=== PATIENT | female | born 1980 | race Caucasian/White ===

== ENCOUNTER 2017-10-15 11:00 | Observation (INO) | payer SELFPAY ==
[2017-10-15 12:42] LABS: ABS Basophils 0.1 10^3/ul (0-0.2); ABS Eosinophils 0.1 10^3/ul (0-0.6); ABS Lymphocytes 1.5 10^3/ul (1.0-4.8); ABS Monocytes 0.6 10^3/ul (0-0.8); ABS Nucleated RBC 0 10^3/ul; Eosinophil % 0.9 % (0-6); Hematocrit 40 % (35-47); Hemoglobin 13.4 g/dl (12.0-16.0); Lymphocyte % 14.7 % (25-47); Mean Corpuscular HGB Conc 33 g/dl (31-36); Mean Corpuscular Hemoglobin 30 pg (27-31); Mean Corpuscular Volume 90 fL (80-97); Mean Platelet Volume 6.8 um3 (7.4-10.4); Nucleated Red Blood Cells % 0; Platelet Count 417 10^3/ul (150-450); Red Blood Count 4.49 10^6/ul (4.0-5.4); Red Cell Distribution Width 13 % (10.5-15); White Blood Count 10.3 10^3/ul (3.5-10.8)
[2017-10-15 13:08] LABS: EGFR Non-African American 78.4 (>60)
[2017-10-15] MEDS ORDERED: Iohexol 350* (CONTRAST) 500 ML MDV IV ONE (13:27)
--- NOTE | 2017-10-15 14:19 | RAD ---
INDICATION: Chest pain. Elevated troponins. Short of breath. Evaluate for pulmonary embolus. COMPARISON: Soft tissue sonogram October 14, 2017 TECHNIQUE: Axial source images were obtained from the thoracic inlet to the hemidiaphragms following administration of [address] angiographic technique was utilized. Coronal and sagittal reconstructed images were acquired. CHEST FINDINGS: Neck/thyroid: There is no evidence of a thyroid mass. There is deep and superficial soft tissue edema to left of midline in the visualized lower neck. Chest wall: Superficial and deep soft tissue edema in the left chest wall/thoracic inlet extending into the left axillary region There is no supraclavicular, infraclavicular, or axillary lymphadenopathy. Lungs : Mild bibasilar atelectasis. No focal consolidative changes. Cardiomediastinal structures: There is no CT evidence of acute pulmonary embolic disease. The heart is normal in size. There is no pericardial effusion. There is mediastinal edema. There is no mediastinal emphysema There is no evidence of aortic aneurysm or dissection. There is no mediastinal or hilar adenopathy. The esophagus appears normal. Pleura : Small moderate-sized bilateral pleural effusions. Other: At the diaphragmatic hiatus there is soft tissue prominence/edema surrounding the aorta which is likely part of the same process extending caudally from the mediastinum. IMPRESSION: THERE ARE DIFFUSE EDEMATOUS/INFILTRATIVE CHANGES LIKELY INFLAMMATORY OR INFECTIOUS EXTENDING FROM THE LEFT NECK TO THE CAUDAL MOST IMAGES AT THE DIAPHRAGMATIC HIATUS. THE SIGNIFICANCE IS UNCERTAIN. THERE ARE BILATERAL PLEURAL EFFUSIONS. THERE IS NO CT EVIDENCE OF ACUTE PULMONARY EMBOLUS. Findings discussed with emergency department.
[2017-10-15] MEDS ORDERED: Acetaminophen TAB* 325 MG PO PRN (15:18)
[2017-10-15 15:23] LABS: INR 1.03 (0.77-1.02)
[2017-10-15] MEDS: Aspirin EC TAB* 81 MG TAB.EC PO SCH (16:06)
--- NOTE | 2017-10-15 19:17 | ECHO ---
Amended Report Patient: RAFAT ARIAS [facility] Rec#: [id number] : 1980 Date: 10/15/2017 Age: 36y Height: 177.8 cm / 70.0 in Weight: 90.72 kg / 199.9 lbs Sex: F BSA: 2.09 Room#: ED-3 Admit Date#: 10/15/2017 Type: Inpatient Referring: Zenia Philippe NP Reading: Sebastian Gunter MD Corporate Travel Manager: Zenia Pat RDCS CC: Hayde Escobar Transthoracic Echocardiogram Indication: Chest pain, ACS. BP: 119/86 HR: 81 Rhythm: NSR with PVCs Findings History: No known health history, non-smoker. Technical Comments: The study quality is fair. Completed at 1630. Left Ventricle: The left ventricular chamber size is normal. There is no left ventricular hypertrophy. Global left ventricular wall motion and contractility are within normal limits. There is normal left ventricular systolic function. The estimated ejection fraction is 55-60%. Abnormal left ventricular diastolic function is observed. There is an E to A reversal in the mitral valve flow pattern suggestive of diastolic dysfunction. Left Atrium: The left atrial chamber size is normal. Right Ventricle: Moderator Band present. The right ventricular cavity size is normal. The right ventricular global systolic function is low normal. Right Atrium: The right atrial cavity size is normal. Aortic Valve: The aortic valve is trileaflet. There is no evidence of aortic valve thickening. There is a trace of aortic regurgitation. There is no evidence of aortic stenosis. Mitral Valve: The mitral valve leaflets are mildly thickened. There is a trace of mitral regurgitation. There is no evidence of mitral stenosis. Tricuspid Valve: The tricuspid valve leaflets are normal. There is a physiologic tricuspid regurgitation. Unable to estimate the right ventricular systolic pressure. There is no tricuspid stenosis. Pulmonic Valve: The pulmonic valve appears normal. There is trace to mild pulmonic regurgitation. There is no pulmonic stenosis. Pericardium: There is no significant pericardial effusion. There are no signs of significant hemodynamic compromise. A pericardial fat pad is visualized. Aorta: There is no dilatation of the ascending aorta. There is no dilatation of the aortic arch. The aortic root is normal in size. Pulmonary Artery: The main pulmonary artery appears normal. Venous: The inferior vena cava appears normal in size. There is a greater than 50% respiratory change in the inferior vena cava dimension. Conclusions Global left ventricular wall motion and contractility are within normal limits. There is normal left ventricular systolic function. The estimated ejection fraction is 55-60%. The right ventricular global systolic function is low normal. There is a trace of aortic regurgitation. There is a trace of mitral regurgitation. There is a physiologic tricuspid regurgitation. Unable to estimate the right ventricular systolic pressure. Measurements Name Value Normal Range RVIDd (AP) 2D 3 cm (0.9 - 2.6) RVDdMajor (2D) 3.6 cm (2.2 - 4.4) RAd ISD 4CH 4.6 cm (3.4 - 4.9) RA (A4C)W 3.9 cm (2.9 - 4.6) IVSd (2D) 1 cm (0.6 - 1) LVPWd (2D) 0.9 cm (0.6 - 1) LVIDd (2D) 4.2 cm (3.6 - 5.4) LVIDs (2D) 2.7 cm - LV FS (2D) 36 % (25 - 45) Aortic Annulus 2.3 cm (1.4 - 2.6) Ao root diameter (2D) 2.7 cm (2.1 - 3.5) Ascending Ao 3.2 cm (2.1 - 3.4) Aortic arch 2.3 cm (1.8 - 3.4) LA dimension (AP) 2D 3 cm (2.3 - 3.8) LAd ISD 4CH 5 cm (2.9 - 5.3) LA ISD 4CH W 4.2 cm (2.5 - 4.5) Name Value Normal Range LA ESV SP 4CH (A/L) 56 ml - LA ESV SP 2CH (A/L) 52 ml - LA ESV BP (A/L) 54 ml - LA ESV BP (A/L) index 26 ml/m2 - LA ESV SP 4CH (MOD) 51 ml - LA ESV SP 2CH (MOD) 49 ml - Name Value Normal Range MV E-wave Vmax 0.58 m/sec - MV deceleration time 160.1 msec - MV A-wave Vmax 0.74 m/sec - MV E:A ratio 0.79 ratio - LV septal e' Vmax 0.09 m/sec - LV lateral e' Vmax 0.15 m/sec - LV E:e' septal ratio 6.44 ratio - LV E:e' lateral ratio 3.86 ratio - Name Value Normal Range AV Vmax 1.1 m/sec - AV VTI 22.36 cm - AV peak gradient 4.82 mmHg - AV mean gradient 2.61 mmHg - LVOT Vmax 0.96 m/sec - LVOT VTI 18.01 cm - LVOT peak gradient 3.71 mmHg - LVOT mean gradient 2.2 mmHg - JOHN Vmax 1.05 m/sec - Name Value Normal Range IVC diameter 1.8 cm - Name Value Normal Range PV Vmax 1.02 m/sec - PV peak gradient 4.18 mmHg -
[2017-10-15] MEDS: Heparin VIAL(*) 5000 UNITS/ML VIAL (FIVE THOUSAND) SUBCUT SCH (21:10)
[2017-10-15] MEDS ORDERED: Iohexol 300* (CONTRAST) 10 ML SDV IV ONE (22:44)
[2017-10-16] MEDS ORDERED: Zolpidem TAB* 10 MG PO PRN (01:10)
--- NOTE | 2017-10-16 01:14 | HP ---
HISTORY AND PHYSICAL: DATE OF ADMISSION: 10/15/17 PRIMARY CARE PROVIDER: Dr. Hayde Escobar. ATTENDING PHYSICIAN: Dr. Charleen Mortensen * (dictated by Zenia Samuel NP). CHIEF COMPLAINT: Left neck swelling and shortness of breath. HISTORY OF PRESENT ILLNESS: Ms. Ng is a 36-year-old female with no significant past medical history, who initially developed a sudden onset of left neck swelling while she was driving yesterday. The patient states that when she went to take a sip of water, she felt as though it would not go down easily. She was seen by her primary care provider yesterday, who sent her to the hospital for an ultrasound. Yesterday, she underwent a soft tissue ultrasound of her neck with Radiology just impression of "nonspecific diffuse soft tissue swelling of the left neck, though most likely etiology would be an acute inflammatory reaction. No abscess collection visualized." The patient states that she talked to her primary care provider who told her that there were no significant findings and to go home, take some Motrin and rest. She states that this morning, she woke up and felt a chest tightness and felt as though it continued to be difficult to swallow although she was able to get water down. She continued to have a left neck and upper chest clavicle area swelling. The patient denies any recent fevers, chills. She reports an occasional cough. Denies any nausea, vomiting, diarrhea. She denies any urinary symptoms. She reports that the chest tightness was worse with a deep breath. She states that she has had a recent cold that started approximately 12 days ago and she is finally getting over. She also reports a feeling of a pulling in her back. She denies any recent travel. She states that she works out daily, recently have lost 50 pounds due to her changes in her lifestyle. She states she has had no recent changes in her exercise routine that could have caused any muscular discomfort. The patient denies any trauma or recent MVAs where she would have had an injury from a seat belt. Due to her symptoms, she presented to the emergency room for further evaluation. While in the emergency room, the patient had labs that were significant for a troponin of 0.73. Her inflammatory markers were not elevated. She had an EKG showing a sinus rhythm and no acute signs of ischemia. There are no previous EKGs for comparison. She had a chest thoracic CTA showing edematous infiltrative changes, bilateral pleural effusions. Due to the patient's elevated troponin, the Hospitalists were asked to evaluate the patient for admission. PAST MEDICAL HISTORY: None. PAST SURGICAL HISTORY: None. HOME MEDICATIONS: Include: 1. Aspirin 81 mg oral daily. She takes daily until she develops her period and then she discontinues until after her period, she is not currently taking this. 2. Progesterone 100 mg oral twice daily. She takes this while trying to conceive. She is not currently taking this. ALLERGIES: No known drug allergies. FAMILY HISTORY: The patient's father had a history of a silent [place]. Denies any family history of diabetes or cancer. SOCIAL HISTORY: The patient denies tobacco, alcohol, or recreational drug use. The patient's , Vlad, will be her surrogate decision maker in the event she is unable to make decisions for herself. REVIEW OF SYSTEMS: I performed an 11-point review of systems. All the pertinent positives and negatives are mentioned in the history of present illness. The remaining review of systems are negative. PHYSICAL EXAMINATION GENERAL APPEARANCE: The patient is alert, pleasant, and appears to be in no acute distress. VITAL SIGNS: Temperature 98.6, heart rate 86, respiratory rate 14, O2 sat 97% on room air, blood pressure 119/86. HEENT: Normocephalic, atraumatic. Pupils are equal and reactive to light. Extraocular movements are intact. In regards to the patient's mouth, there is no erythema. She has good dentition. There are no palpable masses in her mouth. NECK: Supple. There is mild soft tissue swelling to the left side of her neck that goes just below her jaw line and down into her upper chest and clavicle area. There is no redness. RESPIRATORY: There is no accessory muscle use. The lungs are clear to auscultation bilaterally. CARDIOVASCULAR: Regular rate and rhythm. S1, S2 present. There are no murmurs , rubs, or gallops. ABDOMEN: Soft, nontender, nondistended. There are bowel sounds present x4. EXTREMITIES: There is no lower extremity edema. DP and PT pulses are 2+ and symmetric. MUSCULOSKELETAL: There is no clubbing or cyanosis noted. The patient exhibits good strength in all extremities. NEUROLOGICAL: The patient is alert and oriented x4. Cranial nerves II through XII are grossly intact. PSYCHOLOGICAL: The patient is calm and cooperative. SKIN: There are no rashes or abnormalities seen other than the soft tissue swelling as described above. She has slight erythema to to left upper chest. DIAGNOSTIC STUDIES/LABORATORY DATA: Sodium 138, potassium 4.3, chloride 105, CO2 26, BUN 13, creatinine 0.82, glucose 85. White blood cell count 10.3, hemoglobin 13.4, hematocrit 40, and platelet count 418. Troponin 0.73. EKG shows a sinus rhythm with a rate of 83. No previous EKG for comparison. There are no acute signs of ischemia. Chest thoracic CTA from today. Radiologist's impression: There are diffuse edematous/infiltrative changes likely inflammatory or infectious extending from the left neck to the caudal most images at the diaphragmatic hiatus. The significance is uncertain. There are bilateral pleural effusions. There is no CT evidence of acute pulmonary embolus. IMPRESSION: Ms. Ng is a 36-year-old female with no significant past medical history, who presented to the emergency room with complaints of sudden onset of left neck and upper chest swelling and chest tightness that started yesterday. She will be admitted for observation for chest pain. ASSESSMENT/PLAN: 1. Chest pain. The patient will be admitted to rule out acute coronary syndrome. Her initial troponin is 0.73. I am going to have the lab repeat this , to make sure the first result is accurate. We will continue to trend her troponin. She has no signs of ischemia on her EKG. We will get an echocardiogram. Cardiology will consult on the patient. She will be continued on aspirin. If her troponin continues to rise, we will start her on heparin drip. 2. Left neck swelling. At this time, it is unclear etiology and the differential could include infection vs inflammation. She does not have a white count and is afebrile. Her CRP is approximately 3. Her ESR is 14 and she had a neck soft tissue ultrasound without significant findings yesterday. We will continue to monitor this for now. If she continues to have this discomfort, she may benefit from ENT and/or Infectious Disease consult. It is also to note that the patient has been on progesterone, and is at increased risk of blood clots. She had a soft tissue ultrasound yesterday and was noted to have patent bilateral internal jugular veins documented. CTA of chest negative for PE or other significant findings. 3. Fluids, electrolytes and nutrition. The patient will be on a heart healthy diet. 4. Code status. Full code. 5. DVT prophylaxis. The patient is at moderate risk. She will be on subcu heparin. 6. Disposition. Observation. TIME SPENT: The time for this admission was approximately 60 minutes, greater than half of that was spent with the patient discussing medications, past medical history, events leading up to her arrival today, performing a physical examination. The case has been reviewed with the attending, Dr. Mortensen, who agrees with the plan of care. Reviewed by ROB MCGUIRE 10/19/17 [id number]/CPS #: [id number]
[2017-10-16] MEDS: Heparin VIAL(*) 5000 UNITS/ML VIAL (FIVE THOUSAND) SUBCUT SCH (06:20)
--- NOTE | 2017-10-16 07:51 | RAD ---
INDICATION: Evaluate for Erik angina COMPARISON: CTA chest October 15, 2017; sonogram of the neck October 14, 2017 TECHNIQUE: Axial source images were acquired following the intravenous administration of 50 mL Omnipaque 300 Coronal and sagittal reconstructed images were acquired. FINDINGS: Brain and skull base: There are no CT abnormalities of the visualized brain or skull base. The mastoid air cells are well aerated. Salivary glands: The major salivary glands appear normal. Paranasal sinuses: There is mild circumferential coastal thickening of the right maxillary antrum with a short air-fluid level consistent with acute sinusitis. There is minor ethmoid sinusitis. Remainder of the paranasal sinuses are clear. Nasopharynx: The nasopharynx and nasal cavity appear normal. There is no soft tissue edema. Oropharynx: The oral, and oropharynx appear normal. There is no soft tissue edema. Larynx: There are no laryngeal abnormalities. There is no laryngeal edema. Thyroid: The thyroid appears normal. Lymph nodes: There is no lymphadenopathy by size criteria. Trachea/esophagus: There are no abnormalities of the trachea or visualized esophagus. There are bilateral pleural effusions as identified on earlier CT imaging of the chest. Vessels:The vessels appear normal. Bones and soft tissues:The remaining soft tissue elements of the neck are normal. There are no acute bony findings. Other: There is simultaneous edema in the left neck and left supraclavicular region as documented on the CT of the chest. The CT neck shows no additional significant edematous change. IMPRESSION: . NONSPECIFIC EDEMA LEFT NECK AND LEFT UPPER CHEST. CONSIDER INFLAMMATORY/INFECTIOUS ETIOLOGIES. PLEASE REFER ALSO TO CTA OF THE CHEST FROM SAME DATE AND EARLIER ULTRASONOGRAPHY OF THE NECK.
[2017-10-16] MEDS: Aspirin EC TAB* 81 MG TAB.EC PO SCH (09:23)
--- NOTE | 2017-10-16 13:33 | ED ---
Faustino Copeland Jennifer, scribed for Esther Hannah MD on 10/15/17 at 1407 . Shortness of Breath - HPI Summary HPI Summary: The patient is a 36 year old female who presents with shortness of breath and left-sided neck swelling yesterday. The patient was sent to the ED by her PCP yesterday to get an ultrasound, which showed edema. The patient complains of worsening shortness of breath today and more swelling. She describes tightness around the rib cage. She denies chest pain. - History of Current Complaint Chief Complaint: EDShortnessOfBreath Hx Obtained From: Patient Onset/Duration: Sudden Onset, Lasting Days - one day, Still Present, Worse Since - today Timing: Constant Current Severity: Moderate Aggrevating Factors: Nothing Alleviating Factors: Nothing Associated Signs & Symptoms: Negative - chest pain, Edema - neck - Allergy/Home Medications Allergies/Adverse Reactions: Allergies Allergy/AdvReac Type Severity Reaction Status Date / Time No Known Allergies Allergy Verified 04/07/14 08:02 Home Medications: Home Medications Aspirin EC TAB* [Ecotrin EC Low Dose 81 MG*] 81 mg PO DAILY 10/15/17 [History Confirmed 10/15/17] Progesterone CAP (NF) [Prometrium (NF)] 100 mg PO BID 10/15/17 [History Confirmed 10/15/17] PMH/Surg Hx/FS Hx/Imm Hx Endocrine/Hematology History: Denies: Hx Diabetes Cardiovascular History: Denies: Hx Congestive Heart Failure, Hx Deep Vein Thrombosis, Hx Embolism, Hx Hypertension History: Denies: Hx Renal Disease Infectious Disease History: No Infectious Disease History: Denies: Traveled Outside the [place] in Last 30 Days - Family History Known Family History: Negative: Renal Disease - Social History Hx Substance Use: No Substance Use Type: Reports: None Review of Systems Negative: Chest Pain Positive: Shortness Of Breath, Other - tightness across rib cage Positive: Edema - left neck swelling All Other Systems Reviewed And Are Negative: Yes Physical Exam - Summary Physical Exam Summary: GENERAL: ~Patient is a well developed and nourished F who is lying comfortable in the stretcher. ~Patient is not in any acute respiratory distress. HEAD AND FACE: Normocephalic EYES: PERRLA, EOMI x 2. EARS: Hearing grossly intact. MOUTH: Oropharynx within normal limits. NECK: Swollen on left neck area along clavicle. Supple, trachea is midline, no JVD, no carotid bruit. CHEST: Symmetric, no tenderness at palpation LUNGS: Clear to auscultation bilaterally. No wheezing or crackles. CVS: Regular rate and rhythm, S1 and S2 present, no murmurs or gallops appreciated. ABDOMEN: Soft, non-tender. Bowel sounds are normal. No abdominal abnormal pulsations. EXTREMITIES: Full ROM in all major joints, no edema, no cyanosis or clubbing. NEURO: Alert and oriented x 3. No acute neurological deficits. Speech is normal and follows commands. SKIN: Dry and warm Triage Information Reviewed: Yes Vital Signs On Initial Exam: Initial Vitals Temp Pulse Resp BP Pulse Ox 98.6 F 94 14 116/68 97 10/15/17 11:18 10/15/17 11:18 10/15/17 11:18 10/15/17 11:18 10/15/17 11:18 Vital Signs Reviewed: Yes Diagnostics - Vital Signs Vital Signs Temp Pulse Resp BP Pulse Ox 10/15/17 13:00 90 22 98 10/15/17 12:58 99 20 119/86 97 10/15/17 12:57 19 10/15/17 11:18 98.6 F 94 14 116/68 97 - Laboratory Lab Results: Lab Results 10/15/17 10/15/17 10/15/17 Range/Units 12:29 12:29 12:29 WBC 10.3 (3.5-10.8) 10^3/ul RBC 4.49 (4.0-5.4) 10^6/ul Hgb 13.4 (12.0-16.0) g/dl Hct 40 (35-47) % MCV 90 (80-97) fL MCH 30 (27-31) pg MCHC 33 (31-36) g/dl RDW 13 (10.5-15) % Plt Count 417 (150-450) 10^3/ul MPV 6.8 L (7.4-10.4) um3 Neut % (Auto) 77.7 (38-83) % Lymph % (Auto) 14.7 L (25-47) % [place] % (Auto) 6.1 (0-7) % Eos % (Auto) 0.9 (0-6) % Baso % (Auto) 0.6 (0-2) % Absolute Neuts (auto) 8.0 H (1.5-7.7) 10^3/ul Absolute Lymphs (auto) 1.5 (1.0-4.8) 10^3/ul Absolute Monos (auto) 0.6 (0-0.8) 10^3/ul Absolute Eos (auto) 0.1 (0-0.6) 10^3/ul Absolute Basos (auto) 0.1 (0-0.2) 10^3/ul Absolute Nucleated RBC 0 10^3/ul Nucleated RBC % 0 Sodium 138 L (139-145) mmol/L Potassium 4.3 (3.5-5.0) mmol/L Chloride 105 (101-111) mmol/L Carbon Dioxide 26 (22-32) mmol/L Anion Gap 7 (2-11) mmol/L BUN 13 (6-24) mg/dL Creatinine 0.82 (0.51-0.95) mg/dL Est GFR ( Amer) 100.9 (>60) Est GFR (Non-Af Amer) 78.4 (>60) BUN/Creatinine Ratio 15.9 (8-20) Glucose 85 (70-100) mg/dL Lactic Acid 0.7 (0.5-2.0) mmol/L Calcium 9.1 (8.6-10.3) mg/dL Total Bilirubin 0.50 (0.2-1.0) mg/dL AST 12 L (13-39) U/L ALT 8 (7-52) U/L Alkaline Phosphatase 37 (34-104) U/L Troponin I 0.73 H* (<0.04) ng/mL Total Protein 6.9 (6.4-8.9) g/dL Albumin 4.0 (3.2-5.2) g/dL Globulin 2.9 (2-4) g/dL Albumin/Globulin Ratio 1.4 (1-3) Beta HCG, Quant 1.82 mIU/mL Result Diagrams: 10/15/17 12:29 10/15/17 12:29 Lab Statement: Any lab studies that have been ordered have been reviewed, and results considered in the medical decision making process. - CT Chest/Thorax CTA CT Interpretation: Positive (See Comments) - THERE ARE DIFFUSE EDEMATOUS/ INFILTRATIVE CHANGES LIKELY INFLAMMATORY OR INFECTIOUS EXTENDING FROM THE LEFT NECK TO THE CAUDAL MOST IMAGES AT THE DIAPHRAGMATIC HIATUS. THE SIGNIFICANCE IS UNCERTAIN. THERE ARE BILATERAL PLEURAL EFFUSIONS. THERE IS NO CT EVIDENCE OF ACUTE PULMONARY EMBOLUS. Dr. Hannah has reviewed this report. CT Interpretation Completed By: Radiologist - EKG 1124 Cardiac Rate: NL EKG Rhythm: Sinus Rhythm - 83 BPM Course/Dx - Course Course Of Treatment: The patient is a 36 year old female who presents with shortness of breath and left-sided neck swelling yesterday. Bloodwork was obtained. CTA Chest was obtained which showed no PE but shows extensive edema. Troponin elevated at 0.75. I consulted cardiology who will see patient and admitted her to the hospitalist team. The patient is diagnosed with shortness of breath and neck swelling. The patient is admitted to [facility]. - Diagnoses Provider Diagnoses: Shortness of breath - Physician Notifications Discussed Care of Patient With: Sebastian Gunter Time Discussed With Above Provider: 14:13 Instructed by Provider To: Will See In ED - Dr. Mortensen approved admission of patient to [facility]. Discharge - Sign-Out/Discharge Documenting (check all that apply): Discharge/Admit/Transfer - Discharge Plan Condition: Good Disposition: ADMITTED TO [facility] - Billing Disposition and Condition Condition: GOOD Disposition: HOSP-[facility] The documentation as recorded by the Faustino delaney Jennifer accurately reflects the service I personally performed and the decisions made by , Esther Hannah MD.
[2017-10-16 14:12] VITALS: BP 101/62
--- NOTE | 2017-10-16 21:54 | CONS ---
CONSULTATION REPORT: DATE OF CONSULT: 10/16/17 REQUESTING PROVIDER: Dr. Gallegos. CONSULTING SERVICE: Infectious Disease. REASON FOR CONSULT: Left neck swelling. IMPRESSION: Trace left neck and anterior chest edema without erythema or warmth. There is no crepitus, fluctuance, or tenderness. CT scan of the neck and chest showed no thrombus on the neck veins and mild subcutaneous edema extending from the neck to the diaphragmatic hiatus. She had originally had pain and severe swelling which is nearly resolved and she feels back to her usual self. It could be allergic reaction, I think infection less likely given the lack of any systemic symptoms and that she is getting better over the course of the last 24 hours without any particular intervention. RECOMMENDATIONS: Continue to observe off the antibiotics and follow up with Ear , Nose and Throat. HISTORY OF PRESENT ILLNESS: This is a 36-year-old woman admitted last night with neck swelling. The day before, she developed a little bit of fullness and swelling in the neck. Her primary ordered an ultrasound that showed soft tissue edema. Because the edema persists and she develops a feeling of difficulty catching her breath, she was directed to the emergency room. She had a CTA of the chest yesterday, showed no pulmonary embolus. It showed subcutaneous edema as described above and she had an initial troponin that was abnormal. It was found to be a false positive when it was rerun with the same sample. By that time she was being admitted, she has been afebrile last night, this morning and this afternoon. At each point, she feels less swelling, less trouble catching her breath and no pain. Actually the catching of breath issue is resolved. She has had no chills, sweats or decreased appetite. She has no pain with range of motion of her neck. She has had no dental infection. She is breast feeding, but she has had no difficulty with chaffing of nipple or skin. No swelling or abscess around the breast. PAST MEDICAL HISTORY: None. MEDICATIONS: 1. Aspirin 81 mg. 2. Heparin subcutaneous injection. 3. Tylenol as needed. ALLERGIES: No known drug allergies. FAMILY HISTORY: No recurrent infections or tuberculosis. SOCIAL HISTORY: She lives in [place]. She lives with her and children. 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 They have some chickens. They do not have any other pets. No travel, no sick contacts. No injection drugs. REVIEW OF SYSTEMS: All negative to a 14-point review of systems except as noted above. PHYSICAL EXAM: Vital Signs: Temperature is 36.3, heart rate 70, respiratory rate 16, blood pressure 108/72, oxygen saturation 99% on room air. General: She is awake, and not in distress. Neurologic: She is oriented x3. Follows all commands. HEENT: There is no conjunctival hemorrhage. Oropharynx without lesions. There is no inflamed gum. Poor dentition. Neck: Supple without mass. There is a trace of edema on the left neck that extends over the clavicle. There is no tenderness, warmth or crepitus in that distribution. Heart: Regular rate and rhythm without murmurs, rubs or gallops. Lungs: Clear to auscultation bilaterally. Breast Exam: There is no mass, tenderness, warmth or erythema of the left breast. Abdomen: Soft, nontender, nondistended. There are bowel sounds present. Skin: There is no rash or splinter hemorrhages. Musculoskeletal: There is no spine tenderness to palpation or joint synovitis. There is no pain with flexion, extension, rotation of the neck or opening or closing the jaw. DIAGNOSTIC STUDIES/LAB DATA: White blood cell count 10, hemoglobin 13, platelets 417,000. Creatinine is 0.8. CRP was 3. Please see the impressions and recommendations outlined above, which I have discussed with Dr. Gallegos. Thank you for asking me to see Ms. Ng in consultation. [id number]/[facility] #: [id number] [facility]ITAL[facility]
--- NOTE | 2017-10-17 13:08 | DS ---
CC: Dr. Hayde Escobar; Dr. Mahoney; Dr. Benavides. DISCHARGE SUMMARY: DATE OF ADMISSION: 10/15/17 DATE OF DISCHARGE: 10/16/17 PRIMARY CARE PROVIDER: Dr. Hayde Escobar. CONSULTING INFECTIOUS DISEASE SPECIALIST: Dr. Mahoney. ENT: Dr. Benavides. DISCHARGE DIAGNOSES: 1. Left-sided neck and chest swelling, allergic reaction versus cellulitis versus other. 2. Bilateral pleural effusions of unclear etiology. MEDICATION LIST: 1. Aspirin 81 mg p.o. daily. 2. Progesterone 100 mg p.o. b.i.d. NEW MEDICATIONS: 1. Ibuprofen 400 mg p.o. q.6 hours p.r.n. pain or fever. 2. Acetaminophen 650 mg p.o. q.4 hours p.r.n. pain or fever. HOSPITAL COURSE: Ms. Ng is a 36-year-old lady with no significant past medical history, who is s till breast-feeding her [id number] daughter, who presents to the emergency room with complaints of sudden onset of left neck edema and erythema 3 days ago. She thought she was having an allergic reac tion, went to see her primary care provider and was sent for an ultrasound that showed nonspecific, d iffuse soft tissue swelling of the left neck most likely secondary to acute inflammatory reaction, bu t no abscess collection was visualized. The patient was advised to take ibuprofen as needed and she states that yesterday she started to feel like "she had something on her throat while swallowing." This continued to progress and she felt li ke she had something in her chest, reason why she came to the emergency room for further evaluation. For more details about her presentation, I refer you to her history and physical. She had a CT of the chest that showed diffuse edematous/infiltrative changes likely inflammatory or i nfectious extending from the left neck to the caudal most images at the diaphragmatic hiatus. The si gnificance is uncertain. There are bilateral pleural effusions. No CT evidence of acute pulmonary e mbolus. She also underwent a CT of the neck that showed nonspecific edema of the left neck and left upper hdaval st considering inflammatory/infectious etiologies. On admission, the patient's initial troponin was reported as positive. So, she had a transthoracic e chocardiogram that showed an ejection fraction of 55% to 60% with normal wall motion and contractilit y. Later on, troponins were repeated and returned negative. The etiology of this finding is still unclear, although this might have been an infection in the begi nning, it does not appear to be infectious at this time. The patient was seen in consultation by Inf ectious Disease (Dr. Mahoney) who felt since the patient's symptoms are already improving, antibioti cs were not indicated. I discussed the case with ENT (Dr. Benavides) since the patient had the histor y of pharyngitis in June with throat swab that grew MSSA, treated with Augmentin, but at this poin t she does not really have any pharynx complaints. She denies shortness of breath, no issues swallow ing at this time. In reviewing her CT of the chest, the patient's edema follows all the way down to her diaphragm and s he does have bilateral pleural effusions. At this point, the patient feels well enough to be dischar ged, but her workup needs to continue as outpatient. If her swelling does not improve, she may need a thoracentesis to see what does this fluid represents. She could have a thoracic duct obstruction c ausing backup of lymphs and this pleural effusions could represent chylothorax. Although this may be a far-fetched diagnosis, if her symptoms persist and the effusion do not resolve, further workup may be necessary. The patient is stable to be discharged at this time. She was advised about symptoms that should prom pt her return to the emergency room. An appointment was scheduled for her to see Dr. Benavides on at 1945. PHYSICAL EXAMINATION: Vital Signs: Temperature 97.6, heart rate is 76, respiratory rate is 16, oxyg en saturation 98% on room air, blood pressure is 101/62. General: Patient is a young lady, sitting up in bed, in no acute distress. CVS: Normal S1, S2. Regular rate and rhythm. Chest: Breath sound s present bilaterally with no added sounds. Extremities: No edema. Neck: The patient has mild james ma on the left side of her neck extending to the supraclavicular area with very faint erythema, no te nderness, no crepitation on palpation. Neuro: She is alert and oriented x3. Able to move all 4 ext remities. DIET: Regular diet. ACTIVITY: As tolerated. DISPOSITION: To home. STATUS WHILE IN THE HOSPITAL: Observation. Please keep in mind, this is a summarized version of this patient's hospital stay. If you need more i nformation, please feel free to call me at [phone] or please obtain the full medical records. TIME SPENT: Approximately 45 minutes was spent to complete this discharge. [id number]/[facility] #: [id number]
== END 2017-10-16 14:58 | disposition home or self-care (01) ==
LOC: ED 11:00 → MEDTELE 14:45
PROVIDERS: ADMIT Internal Medicine; ATTEND Internal Medicine
DX: T78.3XXA Angioneurotic edema, initial encounter (principal); J90 Pleural effusion, not elsewhere classified; R06.02 Shortness of breath; R07.9 Chest pain, unspecified; Z79.82 Long term (current) use of aspirin
CPT/HCPCS: 36415; 70491; 71275; 80053; 82550; 83605; 84484; 84702; 85025; 85610; 85652; 85730; 86140; 93005; 99283; A9270-GY; J1644; Q9967

== ENCOUNTER 2021-11-09 13:12 | Observation (INO) ==
[2021-11-09] MEDS ORDERED: Dexamethasone IV 4 MG/ML VIAL 1 ml VIAL IV SLOW PU ONE (13:48)
[2021-11-09 14:01] LABS: ABS Eosinophils 0.1 10^3/ul (0-0.6); ABS Lymphocytes 1.6 10^3/ul (1.0-4.8); ABS Monocytes 0.7 10^3/ul (0-0.8); Hematocrit 40 % (35-47); Hemoglobin 13.3 g/dL (12.0-16.0); Lymphocyte % 18.4 %; Mean Corpuscular HGB Conc 33 g/dL (31-36); Mean Corpuscular Hemoglobin 30 pg (27-31); Mean Corpuscular Volume 89 fL (80-97); Platelet Count 403 10^3/uL (150-450); Red Blood Count 4.52 10^6 /uL (3.70-4.87); Red Cell Distribution Width 14 % (10-15); White Blood Count 8.5 10^3/uL (3.5-10.8)
[2021-11-09 14:18] LABS: INR 1.06 (0.86-1.15)
[2021-11-09 14:25] LABS: High Sens Troponin Baseline < 3 pg/mL (<15)
[2021-11-09 15:28] LABS: ALT 13 U/L (7-52); AST 16 U/L (13-39); Albumin 4.6 g/dL (3.2-5.2); Albumin/Globulin Ratio 1.6 (1-3); Alkaline Phosphatase 51 U/L (35-149); Anion Gap 7 mmol/L (2-11); Blood Urea Nitrogen 13 mg/dL (6-24); CO2 Carbon Dioxide 27 mmol/L (22-32); Calcium 9.9 mg/dL (8.6-10.3); Chloride 105 mmol/L (101-111); Globulin 2.8 g/dL (2-4); Glucose 81 mg/dL (70-100); Potassium 4.1 mmol/L (3.5-5.0); Sodium 139 mmol/L (135-145); Total Protein 7.4 g/dL (6.4-8.9); eGFR CKD-EPI 105.9 (>60)
[2021-11-09 15:35] LABS: High Sensitivity Troponin 1 Hr < 3 pg/mL (<15)
[2021-11-09] MEDS ORDERED: Piperacillin/Tazobac ADVAN 3.375 GM in NS 0.9% 100 ml BAG 100 ML IV ONE ×2 (16:05→18:01)
[2021-11-09] MEDS ORDERED: Iohexol 350 (CONTRAST) 500 ML MDV IV ONE (18:06)
[2021-11-09] MEDS ORDERED: Zosyn per Pharmacy NOTE FOLLOW UP SCH (19:00)
[2021-11-09] MEDS: Enoxaparin 100 MG/ML SYR SUBCUT SCH (20:41)
[2021-11-09] MEDS: ZOSYN 3.375 GM Q8H per EXTENDED INFUSION IV SCH (22:29)
[2021-11-10] MEDS: ZOSYN 3.375 GM Q8H per EXTENDED INFUSION IV SCH (06:08)
[2021-11-10 07:20] LABS: Hematocrit 36 % (35-47); Mean Corpuscular HGB Conc 33 g/dL (31-36); Mean Corpuscular Hemoglobin 30 pg (27-31); Mean Corpuscular Volume 89 fL (80-97); Mean Platelet Volume 6.9 fL (7.4-10.4); Platelet Count 379 10^3/uL (150-450); Red Blood Count 4.05 10^6 /uL (3.70-4.87); Red Cell Distribution Width 13 % (10-15); White Blood Count 9.8 10^3/uL (3.5-10.8)
[2021-11-10 07:43] LABS: Calcium 8.9 mg/dL (8.6-10.3); Magnesium 1.8 mg/dL (1.9-2.7); Potassium 3.9 mmol/L (3.5-5.0); eGFR CKD-EPI 113.8 (>60)
[2021-11-10 07:48] LABS: Activated Partial Thrombo Time 32.7 seconds (26.0-38.0); INR 1.18 (0.86-1.15)
[2021-11-10] MEDS: Enoxaparin 100 MG/ML SYR SUBCUT SCH ×2 (08:00→21:45)
[2021-11-11 06:57] LABS: Calcium 8.5 mg/dL (8.6-10.3); Magnesium 1.8 mg/dL (1.9-2.7); Potassium 4.6 mmol/L (3.5-5.0); eGFR CKD-EPI 113.4 (>60)
[2021-11-11 07:27] VITALS: BP 116/68
[2021-11-11] MEDS: Enoxaparin 100 MG/ML SYR SUBCUT SCH (09:46)
[2021-11-13 13:31] LABS: DRVVT Screen Ratio 0.79 ratio (<1.20); LAC APTT 32 sec (25 - 37); LAC INR 1.1 (0.9-1.1); Prothrombin Time(LAC) 12.4 sec (9.4 - 12.5)
[2021-11-13 19:31] LABS: Beta 2 Glycoprotein IgG <9.4 U/mL; Phospholipid Ab IgG < 9.4 GPL; Phospholipid Ab IgM, S 10.6 MPL
== END 2021-11-11 12:20 | disposition home or self-care (01) ==
LOC: EDHOLD 13:12 → ED 13:12 → MEDTELE 23:17
PROVIDERS: ADMIT Internal Medicine; ATTEND Internal Medicine